=== PATIENT | female | born 1965 ===

== ENCOUNTER 2018-11-22 12:23 | Emergency (ER) | payer OTHER ==
[~2018-11-22] VITALS: Ht 157.5 cm; Wt 86.2 kg
[2018-11-22] MEDS ORDERED: VENLAFAXINE HCL50 MG PO (12:30)
[2018-11-22] MEDS ORDERED: TOPROL XL50 M1 PO (12:31)
[2018-11-22] MEDS ORDERED: METFORMIN HCL500 MG PO (12:31)
[2018-11-22] MEDS ORDERED: LOVAZA1 GM PO (12:32)
== END 2018-11-22 14:52 | disposition home or self-care (01) ==
LOC: ER 12:23
DX: M54.89 Other dorsalgia (principal)